=== PATIENT | female | born 1985 | race Caucasian/White ===

== ENCOUNTER 2018-02-06 12:16 | Day surgery (SDC) | payer MEDICAID ==
[~2018-02-06] VITALS: Ht 170.2 cm; Wt 74.0 kg
[~2018-02-06 12:16] MED LIST: BUPIVACAINE/PF 0.5% ONE; EPINEPHRINE 1 MG/ML, 1ML ONE
[2018-02-06] MEDS ORDERED: LACTATED RINGERS 1,000 ML IV SCH (12:43)
[2018-02-06] MEDS ORDERED: NONE PER PT (13:08)
[2018-02-06 13:10] VITALS: BP 121/67
[2018-02-06] MEDS ORDERED: MIDAZOLAM 1 MG/ML, 2ML ONE (13:43)
[2018-02-06] MEDS ORDERED: FENTANYL PF 250 MCG/5ML ONE (13:43)
[2018-02-06] MEDS ORDERED: CEFAZOLIN 1,000 MG ONE (13:44)
[2018-02-06] MEDS ORDERED: ONDANSETRON 2MG/ML, 2ML ONE (13:44)
[2018-02-06] MEDS ORDERED: PROPOFOL 10 MG/ML, 20ML ONE (13:44)
[2018-02-06] MEDS ORDERED: GLYCOPYRROLATE 0.2MG/1ML, 5ML ONE (13:44)
[2018-02-06] MEDS ORDERED: ROCURONIUM 10 MG/ML,10ML ONE (13:44)
[2018-02-06] MEDS ORDERED: DEXAMETHASONE 4 MG/ML, 1ML ONE (13:44)
[2018-02-06] MEDS ORDERED: NEOSTIGMINE 1 MG/ML, 10ML ONE (13:44)
[2018-02-06] MEDS ORDERED: LIDOCAINE 4%, 4 ML SYR/CANN TP ONE (13:44)
[2018-02-06] MEDS ORDERED: SUCCINYLCHOLINE 20 MG/ML, 10ML ONE (13:44)
[2018-02-06] MEDS ORDERED: DIPHENHYDRAMINE 50 MG/ML, 1ML ONE (14:15)
[2018-02-06] MEDS ORDERED: LABETALOL 5MG/ML, 20ML ONE (14:15)
[2018-02-06] MEDS ORDERED: PROMETHAZINE 25 MG/ML, 1ML IV PRN (14:30)
[2018-02-06] MEDS ORDERED: ACETAMINOPHEN 325 MG TABLET PO PRN (14:30)
[2018-02-06] MEDS ORDERED: ONDANSETRON 2MG/ML, 2ML IVPush PRN (14:30)
[2018-02-06] MEDS ORDERED: OXYcodone 5 MG/5 ML ORAL.SOL UDC PO PRN (14:30)
[2018-02-06] MEDS ORDERED: HYDROcodone/APAP 7.5-325MG/15ML UDC PO PRN (14:30)
[2018-02-06] MEDS ORDERED: morphine SULFATE 10 MG/ML, 1ML IV PRN (14:30)
[2018-02-06] MEDS ORDERED: OXYcodone 5 MG/5 ML ORAL.SOL UDC ONE (16:31)
[2018-02-06] MEDS ORDERED: ACETAMINOPHEN 650 MG/20.3 ML UDC ONE (16:31)
[2018-02-06] MEDS ORDERED: FENTANYL PF 100 MCG/2ML ONE (16:39)
[2018-02-06] MEDS: FENTANYL PF 100 MCG/2ML IV PRN ×3 (16:41→17:03)
== END 2018-02-06 19:14 | disposition home or self-care (01) ==
LOC: OUT 12:16
PROVIDERS: ATTEND Surgery
DX: K80.10 Calculus of gallbladder with chronic cholecystitis without obstruction (principal); Z88.8 Allergy status to other drugs, medicaments and biological substances; Z79.899 Other long term (current) drug therapy; Z98.890 Other specified postprocedural states; Z83.3 Family history of diabetes mellitus; Z80.8 Family history of malignant neoplasm of other organs or systems; Z82.49 Family history of ischemic heart disease and other diseases of the circulatory system
CPT/HCPCS: 47562; 88304; C1729; J0171; J0330; J0690; J1100; J1200; J2250; J2405; J2704; J3010; J3490; J7120; J2710